=== PATIENT | female | born 1995 | race Caucasian/White ===

== ENCOUNTER 2021-05-29 19:45 | Inpatient (IN) | payer OTHER ==
[2021-05-30] MEDS ORDERED: Acetaminophen 500 MG TAB PO PRN (07:03)
[2021-05-30] MEDS ORDERED: Ibuprofen 800 MG TAB PO PRN (07:03)
[2021-05-30] MEDS ORDERED: Butorphanol Tartrate 1 MG/ML VIAL SLOW IVP PRN (07:03)
[2021-05-30] MEDS ORDERED: Carboprost 250 MCG/ML AMP IM PRN (07:03)
[2021-05-30] MEDS ORDERED: Lidocaine 1% (PF) 30 ML VIAL SC PRN (07:03)
[2021-05-30] MEDS ORDERED: Promethazine HCl 25 MG/ML VIAL IM PRN (07:03)
[2021-05-30] MEDS ORDERED: Methylergonovine 0.2 MG/ML VIAL IM PRN (07:03)
[2021-05-30] MEDS ORDERED: Ondansetron PF 4 MG/2 ML Vial IVP PRN (07:03)
[2021-05-30] MEDS ORDERED: hydrALAZINE 20 MG/ML VIAL SLOW IVP PRN (07:03)
[2021-05-30] MEDS ORDERED: Misoprostol 200 MCG TAB PR PRN (07:03)
[2021-05-30 07:05] VITALS: BMI 38.0
[2021-05-30] MEDS ORDERED: NS w/ Oxytocin 30 units 500 ML IV SCH ×2 (07:15)
[2021-05-30] MEDS ORDERED: Lactated Ringer's 1,000 ML IV SCH (07:15)
[2021-05-30] MEDS ORDERED: Misoprostol 100 MCG TAB VAG SCH (07:15)
[2021-05-30 08:16] LABS: Hemoglobin 12.3 g/dL (12.0-15.5); Mean Corpuscular Hemoglobin 30.7 pg (27.0-33.0); Mean Corpuscular Volume 87.5 fl (81.6-98.3); Mean Platelet Volume 10.8 fl (7.4-10.4); Platelet Count 184 10x3/uL (150-450); RBC Distribution Width 12.6 % (11.5-14.5); Red Blood Cell (RBC) Count 4.01 10x6/uL (3.90-5.03); White Blood Cell (WBC) Count 8.9 10x3/uL (3.5-10.5)
[2021-05-30 19:42] LABS: SARS-CoV-2 NAA Rapid Test Not Detected (NotDetected)
[2021-05-30] MEDS ORDERED: Fentanyl 100 MCG/2 ML VIAL SLOW IVP PRN (19:49)
[2021-05-31] MEDS ORDERED: Fentanyl 2 mcg/Bup 0.1% Cadd 100 ML ONE (02:17)
[2021-05-31] MEDS ORDERED: diphenhydrAMINE 50 MG/ML VIAL IVP PRN (02:52)
[2021-05-31] MEDS ORDERED: Naloxone HCl 0.4 mg/ml Vial IVP PRN ×2 (02:52)
[2021-05-31] MEDS ORDERED: Promethazine HCl 25 MG/ML VIAL IM PRN (02:52)
[2021-05-31] MEDS ORDERED: ePHEDrine Sulfate 50 MG/10 ML VIAL SLOW IVP PRN (02:52)
[2021-05-31] MEDS ORDERED: Acetaminophen 325 MG TAB PO PRN (02:52)
[2021-05-31] MEDS ORDERED: Ondansetron PF 4 MG/2 ML Vial IVP PRN ×2 (02:52→09:57)
[2021-05-31] MEDS ORDERED: Hydrocerin (Eucerin) Cream 120 gm Jar TOP PRN (02:52)
[2021-05-31] MEDS ORDERED: Lactated Ringer's 500 ML IV PRN (02:52)
[2021-05-31] MEDS ORDERED: Communication Order-Pharmacy FS SCH (03:00)
[2021-05-31] MEDS ORDERED: Fentanyl 2 mcg/Bupivacaine 0.1% Cassette 100 ML EPIDURAL SCH (03:00)
[2021-05-31] MEDS ORDERED: Oxytocin 10 UNITS/ML VIAL ONE (05:26)
[2021-05-31] MEDS ORDERED: Benzocaine-Menthol 82.5 ML CAN TOP PRN (09:57)
[2021-05-31] MEDS ORDERED: NS w/ Oxytocin 30 units 500 ML IV SCH (09:57)
[2021-05-31] MEDS ORDERED: diphenhydrAMINE 25 MG CAP PO PRN (09:57)
[2021-05-31] MEDS ORDERED: Bisacodyl 10 MG SUPP PR PRN (09:57)
[2021-05-31] MEDS ORDERED: Milk Of Magnesia 30 ML UDCUP PO PRN (09:57)
[2021-05-31] MEDS ORDERED: hydrALAZINE 20 MG/ML VIAL SLOW IVP PRN (09:57)
[2021-05-31] MEDS ORDERED: Misoprostol 200 MCG TAB VAG PRN (09:57)
[2021-05-31] MEDS ORDERED: Lanolin Ointment 7 GM TUBE TOP PRN (09:57)
[2021-05-31] MEDS ORDERED: Methylergonovine 0.2 MG/ML VIAL IM PRN (09:57)
[2021-05-31] MEDS ORDERED: Preparation H Ointment 28 GM TUBE PR PRN (09:57)
[2021-05-31] MEDS ORDERED: Prenatal Vitamin 1 TAB PO SCH (11:00)
[2021-05-31] MEDS ORDERED: Docusate 100 MG CAP PO SCH (11:00)
[2021-05-31] MEDS ORDERED: Ferrous Sulfate 325 MG TAB PO SCH (11:00)
[2021-05-31] MEDS: Ibuprofen 800 MG TAB PO SCH ×2 (16:30→20:03)
[2021-05-31] MEDS: Ferrous Sulfate 325 MG TAB PO SCH (16:56)
[2021-05-31] MEDS: Docusate 100 MG CAP PO SCH (20:03)
[2021-06-01] MEDS: Ibuprofen 800 MG TAB PO SCH (05:16)
[2021-06-01 07:55] VITALS: BP 114/70; TEMP 98.4
[2021-06-01] MEDS ORDERED: Prenatal Vitamin 1 TAB PO SCH (09:00)
[2021-06-01] MEDS: Docusate 100 MG CAP PO SCH (09:34)
[2021-06-01] MEDS: Ferrous Sulfate 325 MG TAB PO SCH (09:34)
== END 2021-06-01 11:40 | disposition home or self-care (01) | DRG 807 ==
LOC: CSHLD 05-30 06:01 → CSHPP 05-31 10:25
PROVIDERS: ADMIT Student in an Organized Health Care Education/Training Program; ATTEND Student in an Organized Health Care Education/Training Program
PROC: 0U7C7ZZ Dilation of Cervix, Via Natural or Artificial Opening (ICD-10-PCS; 2021-05-30)
PROC: 3E033VJ Introduction of Other Hormone into Peripheral Vein, Percutaneous Approach (ICD-10-PCS; 2021-05-30)
PROC: 10907ZC Drainage of Amniotic Fluid, Therapeutic from Products of Conception, Via Natural or Artificial Opening (ICD-10-PCS; 2021-05-30)
PROC: 10E0XZZ Delivery of Products of Conception, External Approach (ICD-10-PCS; principal; 2021-05-31)
DX: O24.420 Gestational diabetes mellitus in childbirth, diet controlled (principal); Z37.0 Single live birth; O36.8930 Maternal care for other specified fetal problems, third trimester, not applicable or unspecified; Z3A.40 40 weeks gestation of pregnancy; O26.893 Other specified pregnancy related conditions, third trimester; Z67.41 Type O blood, Rh negative; Z79.899 Other long term (current) drug therapy; Z20.822 Contact with and (suspected) exposure to COVID-19
CPT/HCPCS: 36415; 36416; 85027; 86850; 86900; 86901; J2590; U0002